=== PATIENT | female | born 1980 ===

== ENCOUNTER 2023-01-18 21:21 | Emergency (ER) | payer MEDICAID, OTHER ==
[~2023-01-18] VITALS: Ht 157.5 cm; Wt 135.0 kg
[2023-01-18 21:21] VITALS: BP 123/93
[2023-01-19 02:09] LABS: Urine Bacteria FEW /hpf (None Seen); Urine Blood 3+ /uL (Negative); Urine Mucus FEW (None Seen); Urine Specific Gravity 1.019 (1.001-1.035); Urine WBC 300 /hpf (0 - 5)
== END 2023-01-19 00:04 | disposition left against medical advice (07) ==
LOC: ER 21:21
DX: R10.11 Right upper quadrant pain (principal); Z53.21 Procedure and treatment not carried out due to patient leaving prior to being seen by health care provider
CPT/HCPCS: 81001